=== PATIENT | female | born 1995 | race Caucasian/White ===

== ENCOUNTER 2016-06-21 22:45 | Emergency (ER) | payer OTHER ==
--- NOTE | 2016-06-22 00:33 | ER Document Report ---
ED Psych Disorder / Suicide - General Time seen by provider: 00:30 Mode of Arrival: Ambulatory Information source: Patient TRAVEL OUTSIDE OF THE [place] IN LAST 30 DAYS: No - HPI Patient complains to provider of: Suicidal ideation Associated symptoms: Other - See above <KOSTA SHANKS - Last Filed: 06/22/16 01:38> <CHARLOTTE GUZMAN - Last Filed: 06/22/16 03:31> - General Chief Complaint: Suicidal Ideation Stated Complaint: SUICIDAL IDEATION Notes: Patient is a 20 year old female who presents to the emergency department complaining of suicidal ideation. Patient states that she had promised her mother and doctor that she would go tot [facility] if she felt like she wanted to hurt herself. Patient reports that she normally feels like she wants to hurt herself but today it worsened and states she had a disagreement with a friend yesterday that she thinks may have triggered the increased urge. Patient states that she had a plan to slit her wrists. Patient denies seeing a counselor and homicidal ideation. Patient reports she has an appointment with a psychiatrist on Saturday. Patient has been on lexapro for the past week and believes it has make her angry and is not helping her anxiety. Patient currently complains that she has a headache. (KOSTA SHANKS) - Related Data Allergies/Adverse Reactions: Sulfa (Sulfonamide Antibiotics) Allergy (Verified 06/21/16 23:20) Home Medications: Current Home Medications Escitalopram Oxalate [Lexapro] 0.5 tab PO DAILY 06/21/16 [History] Past Medical History - General Information source: Patient - Social History Smoking Status: Current Every Day Smoker Chew tobacco use (# tins/day): No Frequency of alcohol use: Occasional Drug Abuse: None Family History: Reviewed & Not Pertinent Patient has suicidal ideation: Yes Patient has homicidal ideation: No Psychiatric Medical History: Reports: Hx Anxiety <KOSTA SHANKS - Last Filed: 06/22/16 01:38> Review of Systems - Review of Systems Constitutional: No symptoms reported EENT: No symptoms reported Cardiovascular: No symptoms reported Respiratory: No symptoms reported Gastrointestinal: No symptoms reported Genitourinary: No symptoms reported Female Genitourinary: No symptoms reported Musculoskeletal: No symptoms reported Skin: No symptoms reported Hematologic/Lymphatic: No symptoms reported Neurological/Psychological: See HPI, Headaches, Suicidal ideation. denies: Homicidal ideation -: Yes All other systems reviewed and negative <KOSTA SHANKS - Last Filed: 06/22/16 01:38> Physical Exam - Vital signs Interpretation: Normal - General General appearance: Appears well, Alert - HEENT Head: Normocephalic, Atraumatic Eyes: Normal Pupils: PERRL - Respiratory Respiratory status: No respiratory distress Chest status: Nontender Breath sounds: Normal Chest palpation: Normal - Cardiovascular Rhythm: Regular Heart sounds: Normal auscultation Murmur: No - Abdominal Inspection: Normal Distension: No distension Bowel sounds: Normal Tenderness: Nontender Organomegaly: No organomegaly - Back Back: Normal, Nontender - Extremities General upper extremity: Normal inspection, Nontender, Normal color, Normal ROM , Normal temperature General lower extremity: Normal inspection, Nontender, Normal color, Normal ROM , Normal temperature, Normal weight bearing. No: Maren's sign - Neurological Neuro grossly intact: Yes Cognition: Normal Orientation: AAOx4 [place] Coma Scale Eye Opening: Spontaneous [place] Coma Scale Verbal: Oriented Jack Coma Scale Motor: Obeys Commands [place] Coma Scale Total: 15 Speech: Normal Motor strength normal: LUE, RUE, LLE, RLE Sensory: Normal - Psychological Associated symptoms: Normal affect, Normal mood - Skin Skin Temperature: Warm Skin Moisture: Dry Skin Color: Normal <CHARLOTTE GUZMAN - Last Filed: 06/22/16 03:31> - Vital signs Vitals: Temp Pulse Resp BP Pulse Ox 98.5 F 87 16 143/87 H 100 06/21/16 23:18 06/21/16 23:18 06/21/16 23:18 06/21/16 23:18 06/21/16 23:18 Course - Laboratory Result Diagrams: 06/22/16 00:15 06/22/16 00:15 <KOSTA HSANKS - Last Filed: 06/22/16 01:38> - Laboratory Result Diagrams: 06/22/16 00:15 06/22/16 00:15 <CHARLOTTE GUZMAN - Last Filed: 06/22/16 03:31> - Re-evaluation Re-evalutation: 06/22/16 Patient presents with recent thoughts of hurting herself and has intensified. Patient started Effexor week ago. Patient had a plan to slit her wrists. Patient does not feel like hurting anyone also. Patient with normal mood and affect at this time. Patient's will not be placed on involuntary commitment paperwork but will be held for psychiatric evaluation in the morning. Patient agrees with this plan. Medically stable at this time. (CHARLOTTE GUZMAN) - Vital Signs Vital signs: Temp Pulse Resp BP Pulse Ox 98.5 F 87 16 143/87 H 100 06/21/16 23:18 06/21/16 23:18 06/21/16 23:18 06/21/16 23:18 06/21/16 23:18 - Laboratory Laboratory results interpreted by me: 06/22/16 06/22/16 00:05 00:15 Potassium 3.5 L Urine Ketones TRACE H Salicylates < 1.0 L Acetaminophen < 10 L Discharge <KOSTA SHANKS - Last Filed: 06/22/16 01:38> <CHARLOTTE GUZMAN - Last Filed: 06/22/16 03:31> - Discharge Clinical Impression: Suicidal ideation Depression Qualifiers: Depression Type: unspecified Qualified Code(s): F32.9 - Major depressive disorder, single episode, unspecified Condition: Stable Disposition: HOME, SELF-CARE Scribe Attestation: 06/22/16 03:31 I personally performed the services described in the documentation, reviewed and edited the documentation which was dictated to the scribe in my presence, and it accurately records my words and actions. (CHARLOTTE GUZMAN) Scribe Documentation - Scribe Written by Sergo:: sergo Starks, 06/22/16, 0059 acting as scribe for :: Negin <KOSTA SHANKS - Last Filed: 06/22/16 01:38>
[2016-06-22 00:47] LABS: ABSOLUTE EOSINOPHILS # (AUTO) 0.2 10^3/uL (0.0-0.6); ABSOLUTE LYMPHOCYTES (AUTO) 2.4 10^3/uL (0.5-4.7); ABSOLUTE MONOCYTES (AUTO) 0.5 10^3/uL (0.1-1.4); BASOPHILS % (AUTO) 0.2 % (0-2); EOSINOPHILS % (AUTO) 1.8 % (0-6); HEMATOCRIT 39.7 % (36.0-47.0); HEMOGLOBIN 13.6 g/dL (12.0-15.5); HGB HCT DIFFERENCE 1.1; LYMPHOCYTES % (AUTO) 26.2 % (13-45); MEAN CORPUSCULAR HEMOGLOBIN 29.3 pg (27.0-33.4); MEAN CORPUSCULAR HGB CONC 34.3 g/dL (32.0-36.0); MEAN CORPUSCULAR VOLUME 85 fl (80-97); MONOCYTES % (AUTO) 5.9 % (3-13); RED BLOOD COUNT 4.64 10^6/uL (3.72-5.28); RED CELL DISTRIBUTION WIDTH 13.5 % (11.5-14.0); SEGMENTED NEUTROPHILS % (AUTO) 65.9 % (42-78); WHITE BLOOD COUNT 9.2 10^3/uL (4.0-10.5)
[2016-06-22 00:58] LABS: APPEARANCE,URINE CLEAR; BILIRUBIN,URINE NEGATIVE (NEGATIVE); GLUCOSE, URINE NEGATIVE (NEGATIVE); KETONES,URINE TRACE mg/dL (NEGATIVE); LEUKOCYTE ESTERASE,URINE NEGATIVE (NEGATIVE); NITRITE,URINE NEGATIVE (NEGATIVE); PROTEIN,URINE NEGATIVE (NEGATIVE); URINE SPECIFIC GRAVITY 1.002; UROBILINOGEN,URINE NEGATIVE mg/dL (<2.0)
[2016-06-22 01:06] LABS: ALANINE AMINOTRANSFERASE 32 U/L (9-52); ALBUMIN 4.3 g/dL (3.5-5.0); ALKALINE PHOSPHATASE 76 U/L (38-126); ANION GAP 13 (5-19); ASPARTATE AMINO TRANSFERASE 21 U/L (14-36); BILIRUBIN,DIRECT 0.2 mg/dL (0.0-0.4); BILIRUBIN,TOTAL 0.5 mg/dL (0.2-1.3); BLOOD UREA NITROGEN 13 mg/dL (7-20); CALCIUM 9.7 mg/dL (8.4-10.2); CARBON DIOXIDE 25 mmol/L (22-30); CHLORIDE 105 mmol/L (98-107); GLUCOSE 87 mg/dL (75-110); POTASSIUM 3.5 mmol/L (3.6-5.0); SODIUM 143.1 mmol/L (137-145); TOTAL PROTEIN 7.2 g/dL (6.3-8.2)
[2016-06-22 01:10] LABS: ALCOHOL < 10 mg/dL (NONE DETECTED)
[2016-06-22 01:39] LABS: URINE BARBITURATES SCREEN NEGATIVE; URINE METHADONE SCREEN NEGATIVE; URINE OPIATES LOW NEGATIVE; URINE PHENCYCLIDINE SCREEN NEGATIVE
[2016-06-22] MEDS ORDERED: ACETAMINOPHEN 325 MG TABLET PO ONE (01:48)
--- NOTE | 2016-06-22 07:06 | EKG REPORT ---
SEVERITY:- NORMAL ECG - SINUS RHYTHM : Confirmed by: Raphael Lucas MD 22-Jun-2016 07:06:04
--- NOTE | 2016-06-22 09:48 | ER Document Report ---
Doctor's Note Notes: 06/22/16 09:47 Chart reviewed and patient evaluated. She has a history of depression states that she has been on Lexapro for one week. She was evaluated in the ER last night for thoughts of cutting her wrists. She has had no actual self-harm. She had agreed to stay for mental health evaluation this morning. She is pleasant and conversant this morning with no new complaints or concerns. Labs are reviewed and at this point she is medically stable for transfer discharge. Will await mental health recommendations today. 06/22/16 19:40 Patient discussed with mental health team again. Patient has been cleared psychiatrically she is safe for discharge at this time. She has scheduled follow-up with mental health on Saturday. She denies any suicidal or homicidal ideation. She will return to the emergency department for any worsening symptoms or concerns.
[2016-06-22 19:58] VITALS: BP 125/72
== END 2016-06-22 20:00 | disposition home or self-care (01) ==
LOC: ER 22:45
DX: F32.9 Major depressive disorder, single episode, unspecified (principal); R45.851 Suicidal ideations; R51 Headache; F41.9 Anxiety disorder, unspecified; F17.200 Nicotine dependence, unspecified, uncomplicated
CPT/HCPCS: 36415; 80053; 80307; 81001; 84703; 85025; 93005; 93010; 99285

== ENCOUNTER 2018-04-09 11:08 | Emergency (ER) | payer OTHER ==
[2018-04-09 11:34] VITALS: BP 143/93
--- NOTE | 2018-04-09 11:36 | ER Document Report ---
ED Medical Screen (RME) - General Chief Complaint: Abdominal Cramping Stated Complaint: ABDOMINAL CRAMPING Time Seen by Provider: 04/09/18 11:33 Notes: 22 years old female with a history of IUD, presents today with lower abdominal/suprapubic pain for the last couple of days. Could not identify the string of the IUD. No dysuria frequency urgency but spotting on and off. No fever chills or other constitutional symptoms. TRAVEL OUTSIDE OF THE [place] IN LAST 30 DAYS: No - Related Data Allergies/Adverse Reactions: Sulfa (Sulfonamide Antibiotics) Allergy (Verified 04/09/18 11:13) Past Medical History - Social History Chew tobacco use (# tins/day): No Frequency of alcohol use: Occasional Drug Abuse: None Renal/ Medical History: Denies: Hx Peritoneal Dialysis Psychiatric Medical History: Reports: Hx Anxiety Physical Exam - Vital signs Vitals: Temp Pulse Resp BP Pulse Ox 98.5 F 88 16 143/93 H 100 04/09/18 11:32 04/09/18 11:32 04/09/18 11:32 04/09/18 11:32 04/09/18 11:32 Course - Vital Signs Vital signs: Temp Pulse Resp BP Pulse Ox 98.5 F 88 16 143/93 H 100 04/09/18 11:32 04/09/18 11:32 04/09/18 11:32 04/09/18 11:32 04/09/18 11:32
[2018-04-09 12:51] LABS: APPEARANCE,URINE CLOUDY; BILIRUBIN,URINE NEGATIVE (NEGATIVE); COLOR,URINE YELLOW; GLUCOSE, URINE NEGATIVE (NEGATIVE); KETONES,URINE NEGATIVE (NEGATIVE); LEUKOCYTE ESTERASE,URINE LARGE (NEGATIVE); NITRITE,URINE NEGATIVE (NEGATIVE); PROTEIN,URINE NEGATIVE (NEGATIVE); URINE SPECIFIC GRAVITY 1.009; UROBILINOGEN,URINE NEGATIVE mg/dL (<2.0)
[2018-04-09] MEDS ORDERED: KETOROLAC TROMETHAMINE 60 MG/2 ML SDV IM ONE (12:58)
--- NOTE | 2018-04-09 13:58 | ER Document Report ---
ED General - General Chief Complaint: Abdominal Cramping Stated Complaint: ABDOMINAL CRAMPING Time Seen by Provider: 04/09/18 11:33 Notes: Patient is a 22-year-old female that presents to the emergency department for chief complaint of pelvic cramping and pain. Patient is concerned that her IUD is out of place, because she is been having increased abdominal cramping over the past several days, she did take a test that was negative. She had her IUD placed in July. She states the pain started on Saturday and it just seemingly got worse, she denies having any associated dysuria or hematuria. She also denies having any recent fevers, chills, night sweats, nausea, vomiting. She does not remember having any abnormal vaginal discharge, but states she has had some spotting, she thought she was having I. But she has not really had much. Since having her IUD placed. She currently rates her pain as a 5 out of 10 describes it as a cramping sensation bilaterally in the pelvis. Past Medical History: Depression/anxiety Past Surgical History: Denies recent and pertinent surgical history Social History: Admits to smoking cigarettes, denies alcohol or drug use. Family History: Reviewed and noncontributory for presenting illness Allergies: Reviewed, see documented allergy list. REVIEW OF SYSTEMS: Other than noted above, the 12 point review of systems was reviewed with the patient and were negative, all pertinent findings are included in the HPI. PHYSICAL EXAMINATION: Vital signs reviewed, nursing noted reviewed. GENERAL: Well-appearing, well-nourished and in no acute distress. HEAD: Atraumatic, normocephalic. EYES: Eyes appear normal, extraocular movements intact, sclera anicteric, conjunctiva are normal. ENT: nares patent, oropharynx clear without exudates. Moist mucous membranes. NECK: Normal range of motion, supple without lymphadenopathy LUNGS: Breath sounds clear to auscultation bilaterally and equal. No wheezes rales or rhonchi. HEART: Regular rate and rhythm without murmurs ABDOMEN: Soft, nontender, normoactive bowel sounds. No rebound, guarding, or rigidity. No masses appreciated. Mild lower abdominal tenderness to palpation. Pelvic Exam: With a environmental technical officer present the exam was explained to the patient and patient agreed to proceed with exam. On exam, no external lesions or abnormalities noted. Internal speculum exam demonstrated normal appearing cervix where there was noted to be some purulent appearing discharge, no cervical motion tenderness, or erythema of the cervix. Swabs obtained. Bimanual exam was negative for adnexal tenderness, or palpable masses. EXTREMITIES: Nontender, good range of motion, no pitting or edema. NEUROLOGICAL: No focal neurological deficits. Moves all extremities spontaneously Motor and sensory grossly intact on exam. PSYCH: Normal mood, normal affect. SKIN: Warm, Dry, normal turgor, no rashes or lesions noted on exposed skin TRAVEL OUTSIDE OF THE [place] IN LAST 30 DAYS: No - Related Data Allergies/Adverse Reactions: Sulfa (Sulfonamide Antibiotics) Allergy (Verified 04/09/18 11:13) Past Medical History - Social History Smoking Status: Current Every Day Smoker Chew tobacco use (# tins/day): No Frequency of alcohol use: Occasional Drug Abuse: None Family History: Reviewed & Not Pertinent Patient has suicidal ideation: No Patient has homicidal ideation: No Renal/ Medical History: Denies: Hx Peritoneal Dialysis Psychiatric Medical History: Reports: Hx Anxiety, Hx Depression - anxiety Physical Exam - Vital signs Vitals: Temp Pulse Resp BP Pulse Ox 98.5 F 88 16 143/93 H 100 04/09/18 11:32 04/09/18 11:32 04/09/18 11:32 04/09/18 11:32 04/09/18 11:32 Course - Re-evaluation Re-evalutation: Patient seen and examined vital signs reviewed. Laboratory data and imaging were ordered as appropriate for the patient's presenting symptoms and complaint, with consideration of any critical or life threatening conditions that may be associated with their obtained history and exam as noted above. Patient was treated with IM Toradol for pain Results were reviewed when available and demonstrated unremarkable transvaginal ultrasound, her wet mount did demonstrate bacteria, and white cells, possible bacterial vaginosis versus cervicitis, will treat the patient for possible GC chlamydia with IM Rocephin, and p.o. azithromycin thousand milligrams, patient is also given a prescription for Flagyl 500 mg to take twice daily for 7 days advised to follow-up with [facility]. The patient was re-evaluated and was stable, pain was improved Evaluation was most consistent with pelvic pain, bacterial vaginosis, cervicitis Results were discussed with the patient at this point, after careful consideration I feel that that patient can be discharged from the emergency department, the patient was educated treatments and reasons to return to the emergency department based on their presumed diagnosis as noted above, they were advised to followup with a primary care physician in 2-3 days. Patient was agreeable to plan of care. *Note is created using voice recognition software and may contain spelling, syntax or grammatical errors. Laboratory 04/09/18 04/09/18 04/09/18 12:10 14:08 14:08 Urine Color YELLOW Urine Appearance CLOUDY Urine pH 7.0 Ur Specific [employer] 1.009 Urine Protein NEGATIVE Urine Glucose (UA) NEGATIVE Urine Ketones NEGATIVE Urine Blood LARGE H Urine Nitrite NEGATIVE Urine Bilirubin NEGATIVE Urine Urobilinogen NEGATIVE Ur Leukocyte Esterase LARGE H Urine WBC (Auto) 129 Urine RBC (Auto) 59 Urine Bacteria (Auto) TRACE Squamous Epi Cells Auto 10 Urine Ascorbic Acid NEGATIVE Urine HCG, Qual NEGATIVE Epi Cells (Wet Prep) 3+ EPITHELIALS SEEN Bacteria (Wet Prep) 3+ BACTERIA SEEN Trichomonas (Wet Prep) NO TRICHOMONAS SEEN Vaginal WBC 4+ WBCS SEEN Vaginal RBC 2+ RBCS SEEN Vaginal Yeast NO YEAST SEEN Chlamydia DNA (PCR) DETECTED H N.gonorrhoeae DNA (PCR) NOT DETECTED Transvaginal US 04/09/18 12:59 IMPRESSION: UNREMARKABLE TRANSVAGINAL PELVIC ULTRASOUND. IUD IN PLACE IN THE ENDOMETRIAL CAVITY. - Vital Signs Vital signs: Temp Pulse Resp BP Pulse Ox 98.5 F 88 16 143/93 H 100 04/09/18 11:32 04/09/18 11:32 04/09/18 11:32 04/09/18 11:32 04/09/18 11:32 - Laboratory Laboratory results interpreted by me: 04/09/18 04/09/18 12:10 14:08 Urine Blood LARGE H Ur Leukocyte Esterase LARGE H Chlamydia DNA (PCR) DETECTED H Discharge - Discharge Clinical Impression: Bacterial vaginitis, Cervicitis Condition: Stable Disposition: HOME, SELF-CARE Instructions: Vaginosis, Bacterial ([facility]) Prescriptions: RX: Metronidazole [Flagyl] 500 mg PO BID #14 tablet Referrals: [facility] [Provider Group] - Follow up in 3-5 days
[2018-04-09 14:21] LABS: BACTERIA (WET MOUNT) 3+ BACTERIA SEEN; EPITHELIALS (WET MOUNT) 3+ EPITHELIALS SEEN; RBCS (WET MOUNT) 2+ RBCS SEEN; T.VAGINALIS (WET MOUNT) NO TRICHOMONAS SEEN; WBCS (WET MOUNT) 4+ WBCS SEEN; YEAST (WET MOUNT) NO YEAST SEEN
[2018-04-09] MEDS ORDERED: CEFTRIAXONE INJ 250 MG VIAL IM ONE (15:22)
[2018-04-09] MEDS ORDERED: LIDOCAINE 1% INJ-PF (10 MG/ML) 30 ML SDV INFIL ONE (15:22)
[2018-04-09] MEDS ORDERED: AZITHROMYCIN 250 MG TABLET PO ONE (15:23)
--- NOTE | 2018-04-09 15:31 | RADIOLOGY REPORT (SQ) ---
EXAM DESCRIPTION: U/S NON OB PEL TV W/DOPPLER COMPLETED DATE/TIME: 04/09/2018 3:13 pm REASON FOR STUDY: pelvic pain, hx IUD in place COMPARISON: None. TECHNIQUE: Dynamic and static grayscale images acquired of the pelvis via transvaginal approach and recorded on PACS. Additional selected color Doppler and spectral images recorded. LIMITATIONS: None. FINDINGS: UTERUS: Contour normal. No mass. ENDOMETRIAL STRIPE: IUD in place. No focal or generalized thickening. No masses. CERVIX: No nabothian cysts. RIGHT OVARY AND DOPPLER: Normal size. No worrisome masses. Normal arterial vascular flow without evid ence for torsion. LEFT OVARY AND DOPPLER: Normal size. No worrisome masses. Normal arterial vascular flow without evide nce for torsion. FREE FLUID: None noted. OTHER: No other significant finding. MEASUREMENTS: UTERUS: 4.1 x 5.5 x 8.8 cm. ENDOMETRIAL STRIPE: 5 mm. RIGHT OVARY: 2.2 x 2 4 x 3.5 cm. LEFT OVARY: 1.6 x 2.4 x 3.0 cm. IMPRESSION: UNREMARKABLE TRANSVAGINAL PELVIC ULTRASOUND. IUD IN PLACE IN THE ENDOMETRIAL CAVITY. TECHNICAL DOCUMENTATION: JOB ID: [id number] [employer]- All Rights Reserved Rev Reading location - IP/workstation name: [email or web address]
[2018-04-09 15:46] LABS: CHLAM PCR DETECTED (NOT DETECT); GON PCR NOT DETECTED (NOT DETECT)
== END 2018-04-09 16:12 | disposition home or self-care (01) ==
LOC: ER 11:08
DX: N72 Inflammatory disease of cervix uteri (principal); N76.0 Acute vaginitis; B96.89 Other specified bacterial agents as the cause of diseases classified elsewhere; R10.2 Pelvic and perineal pain; F17.210 Nicotine dependence, cigarettes, uncomplicated; Z97.5 Presence of (intrauterine) contraceptive device; Z88.2 Allergy status to sulfonamides
CPT/HCPCS: 99284; 96372; 87210; 81025; 81001; 87491; 87591; 76830; 93976; J1885; J3490; J0696